=== PATIENT | female | born 1975 | race Caucasian/White ===

== ENCOUNTER 2018-07-01 05:23 | Day surgery (SDC) | payer OTHER ==
[~2018-07-01] VITALS: Ht 165.1 cm; Wt 76.6 kg
[~2018-07-01 05:23] MED LIST: CLONAZEPAM0.5 MG PO; CYMBALTA60 MG PO; DULCOLAX10 MG PR; MIRENA52 MG IY; MOTRIN800 MG PO; SUMATRIPTAN SU100 MG PO; TRAZODONE HCL50 MG PO; ULTRAM50 MG PO
[2018-07-01 05:51] VITALS: BP 110/74
[2018-07-01 13:18] VITALS: BP 128/87
[2018-07-01 15:04] LABS: HEMATOCRIT 39.1 % (36.0-46.0); HEMOGLOBIN 13.2 G/DL (11.9-15.5); MCV 95.4 FL (83-99)
[2018-07-01 19:23] VITALS: BP 116/68
[2018-07-02 00:11] VITALS: BP 105/54
[2018-07-02 03:42] VITALS: BP 103/61
[2018-07-02 06:38] LABS: HEMATOCRIT 36.9 % (36.0-46.0); HEMOGLOBIN 12.3 G/DL (11.9-15.5); MCH 31.9 PG (29.0-34.0); MCHC 33.3 G/DL (30.0-36.0); MCV 95.6 FL (83-99); PLATELET COUNT 230 K/uL (156-360); RBC DIS.WIDTH-CV 12.3 % (11.8-14.6); RBC DIS.WIDTH-SD 42.5 % (39-53); RED BLOOD COUNT 3.86 M/uL (3.80-5.20); WHITE BLOOD COUNT 11.6 K/uL (4.1-10.2)
[2018-07-02 07:05] LABS: CHLORIDE 106 MEQ/L (99-109); CREATININE 0.8 MG/DL (0.6-1.3); GFR ESTIMATE (CALCULATED) > 59 mL/min/; GLUCOSE 104 mg/dL (70-99); POTASSIUM 4.1 MEQ/L (3.7-5.4); SODIUM 140 MEQ/L (136-147); UREA NITROGEN (BUN) 6 mg/dL (9-23)
[2018-07-02 07:18] VITALS: BP 98/53
[2018-07-02] MEDS ORDERED: ENDOCET 5-3251 EACH PO (08:36)
[2018-07-02] MEDS ORDERED: MOTRIN800 MG PO (08:36)
[2018-07-02 12:08] VITALS: BP 108/61
== END 2018-07-02 14:30 | disposition home or self-care (01) ==
LOC: SDC → ENRESERV 10:35 → 2EASTP 10:45 → 2SOUTH 10:45 → ENRESERV 11:06 → 2EASTP 13:12
PROVIDERS: Obstetrics & Gynecology
PROC: 0UPD7HZ Removal of Contraceptive Device from Uterus and Cervix, Via Natural or Artificial Opening (ICD-10-PCS; principal; 2018-07-01)
PROC: 0TJB8ZZ Inspection of Bladder, Via Natural or Artificial Opening Endoscopic (ICD-10-PCS; principal; 2018-07-01)
PROC: 0UTC4ZZ Resection of Cervix, Percutaneous Endoscopic Approach (ICD-10-PCS; principal; 2018-07-01)
PROC: 0UT64ZZ Resection of Left Fallopian Tube, Percutaneous Endoscopic Approach (ICD-10-PCS; principal; 2018-07-01)
PROC: 0UT94ZZ Resection of Uterus, Percutaneous Endoscopic Approach (ICD-10-PCS; principal; 2018-07-01)
DX: N87.1 Moderate cervical dysplasia (principal); R87.810 Cervical high risk human papillomavirus (HPV) DNA test positive; Z30.432 Encounter for removal of intrauterine contraceptive device; J02.9 Acute pharyngitis, unspecified
CPT/HCPCS: 80048; 85014; 85018; 85027; 88307; G0378; J0131; J0330; J0690; J1170; J1885; J2250; J2270; J2405; J2710; J3010; J7120; J7643; Q0175; S0020